=== PATIENT | female | born 1995 | race African-American/Black ===

== ENCOUNTER 2022-04-27 02:14 | Emergency (ER) | payer MEDICAID ==
[~2022-04-27] VITALS: Ht 160 cm; Wt 61.2 kg
[2022-04-27 02:26] VITALS: BP_SYST 115
--- NOTE | 2022-04-27 02:30 | NUR ---
PT FROM HOME WITH C/O OF HIVES THROUGHTOUT BODY. PT REPORTS HAVING HIVES YESTERDAY THAT RESOLVED AND RETURNED TODAY. PT STATES SHE THINKS THE HIVES ARE FROM TWO BUG BITES THAT ARE ON THE ABD.
--- NOTE | 2022-04-27 02:32 | NUR ---
Placed in room 2 . Placed on bus driver/monitor, blood pressure machine and pulse oximeter. To gown for exam. Side rails up. Report given to DEBORA HOYT.
--- NOTE | 2022-04-27 02:36 | NUR ---
MD AT BEDSIDE WITH PATIENT FOR EVALUATION.
--- NOTE | 2022-04-27 02:36 | NUR ---
PT TACHYCARDIC AT 132 BPM. MADE AWARE.
[2022-04-27] MEDS ORDERED: EPINEPHRINE HCL/PF 1 MG/ML AMP IM ONE (02:45)
[2022-04-27] MEDS ORDERED: PRED20TA PO ×2 (02:51→03:51)
--- NOTE | 2022-04-27 02:55 | NUR ---
PT STATES FEELING SOME RELIEF FROM THE ITCHINESS AFTER EPI ADMINISTRATION.
--- NOTE | 2022-04-27 03:53 | NUR ---
Patient given written and verbal discharge instructions and verbalizes understanding. ER MD discussed with patient the results and treatment provided. Patient in stable condition. ID arm band removed. Rx of Prednisone sent to preferred pharmacy. Patient educated on pain management and to follow up with PMD. Opportunity for questions provided and answered. Medication side effect fact sheet provided.
[2022-04-27 03:57] VITALS: BP_SYST 122
== END 2022-04-27 03:57 | disposition home or self-care (01) ==
LOC: SED 02:14
DX: T78.2XXA Anaphylactic shock, unspecified, initial encounter (principal); L50.0 Allergic urticaria; R07.9 Chest pain, unspecified; R06.02 Shortness of breath; Z79.899 Other long term (current) drug therapy
CPT/HCPCS: 99283; 96372; J0171